=== PATIENT | male | born 1980 | race Hispanic/Latino ===

== ENCOUNTER 2018-08-05 14:21 | Emergency (ER) | payer OTHER ==
[2018-08-05 14:23] VITALS: BMI 28.7
[2018-08-05 14:49] VITALS: RESP 18
--- NOTE | 2018-08-05 15:07 | ED PDOC ---
Arrival/HPI - General Chief Complaint: Seizure Time Seen by Provider: 08/05/18 14:55 Historian: Patient, Family - History of Present Illness Narrative History of Present Illness (Text): 08/05/18 15:05 38 year old male, whose past medical history includes HTN, DM type II, seizure with shunt in place, and cerebral palsy, , presents to the emergency department accompanied by family for evaluation of seizure episode s/p slip and fall while taking a bath. As per family, patient has not had a seizure in a few years and reports patient is complaint with his medication. Patient is complaining of a headache, but denies any fever, chills, chest pain, shortness of breath, nausea, vomiting, diarrhea, urinary symptoms, back pain, neck pain, dizziness, or any other complaints. PMD: Dr. Sultana Time/Duration: Prior to Arrival Symptom Onset: Sudden Symptom Course: Unchanged Activities at Onset: Light Context: Slipped Past Medical History - Provider Review Nursing Documentation Reviewed: Yes - Cardiac Hx Hypertension: Yes - Neurological Hx Seizures: Yes Other/Comment: Shunt, Cerebral Palsy - Endocrine/Metabolic Hx Diabetes Mellitus Type 2: Yes - Psychiatric Hx Substance Use: No - Surgical History Other/Comment: ventricular shunt - Anesthesia Hx Anesthesia: Yes Hx Anesthesia Reactions: No Hx Malignant Hyperthermia: No Family/Social History - Physician Review Nursing Documentation Reviewed: Yes Family/Social History: No Known Family HX Smoking Status: Never Smoked Hx Alcohol Use: No Hx Substance Use: No Allergies/Home Meds Allergies/Adverse Reactions: Allergies No Known Allergies Allergy (Verified 08/05/18 14:50) Home Medications: Home Meds Medication Instructions Recorded Confirmed ALPRAZolam [Xanax] 1 mg PO TID PRN 08/05/18 08/05/18 Divalproex [Depakote] 500 mg PO BID 08/05/18 08/05/18 Enalapril Maleate [Vasotec] 5 mg PO DAILY 08/05/18 08/05/18 Labetalol [Trandate] 300 mg PO DAILY 08/05/18 08/05/18 OXcarbazepine [Trileptal] 1.5 tab PO DAILY 08/05/18 08/05/18 traMADol [Ultram] 50 mg PO TID PRN 08/05/18 08/05/18 Review of Systems - Physician Review All systems were reviewed & negative as marked: Yes - Review of Systems Constitutional: absent: Fevers, Other (chills) Respiratory: absent: SOB Cardiovascular: Syncope. absent: Chest Pain Gastrointestinal: absent: Diarrhea, Nausea, Vomiting Genitourinary Male: absent: Dysuria, Frequency, Hematuria Musculoskeletal: absent: Back Pain, Neck Pain Neurological: Headache. absent: Dizziness Physical Exam - Physical Exam Narrative Physical Exam (Text): Gen: VS reviewed, alert, well developed, well nourished, nontoxic, mild distress. Head: Enlarged cranium. palpable [employer] shunt bilaterally ENT: normal pharynx. Mouth: Dry mucus membranes. Eye: EOMI, PERRL. Neck: no JVD, supple, no adenopathy. CV: regular rate, regular rhythm, no rubs, no murmur, no gallops, S1, S2, pulses equal and strong. Pulm: no distress, clear to auscultation, no wheeze, no rhonchi, breath sounds equal, no rales. Abd: soft, nontender, no guarding, no rebound, no rigidity, normal bowel sounds. Ext: no edema. Skin: good color, no rash, no cyanosis. Psych: responds appropriately to questions, normal affect. Neuro: oriented x 3, CN2-12 intact grossly, motor intact, sensation intact. Vital Signs Reviewed: Yes Vital Signs Temp Pulse Resp BP Pulse Ox 08/05/18 14:21 98.4 F 68 18 127/79 98 Temperature: Afebrile Blood Pressure: Normal Pulse: Regular Respiratory Rate: Normal Medical Decision Making ED Course and Treatment: 08/05/18 15:05 Impression: 38 year old male presents for evaluation of seizure episode s/p slip and fall in the bath tube. Plan: -- CT Head w/o contrast -- EKG -- Labs -- Chest X-ray -- Pelvis One view x-ray -- Shuntogram x-ray -- Reassess and disposition Prior Visits: Notes and results from previous visits were reviewed. Progress Notes: 08/05/18 18:[address] rangel, patient's neurologist. recommends loading dose of depakote and patient can be discharged home to follow up in the office. - Lab Interpretations I have reviewed the lab results: Yes - RAD Interpretation Narrative RAD Interpretations (Text): PROCEDURE: CT HEAD WITHOUT CONTRAST. Dictator : Kike Manzano MD Report Date : 08/05/2018 16:20:14 IMPRESSION: No change in chronic severe hydrocephalus. Left-sided shunt catheter remains in place. Trucking Manager: Radiologist - EKG Interpretation EKG Interpretation (Text): EKG shows NSR @ 63 bpm, nml qrs, nml axis, no acute sttw abn, early repolarization. Interpreted by ED Physician: Yes Type: 12 lead EKG - Scribe Statement The provider has reviewed the documentation as recorded by the Scribe Peyman Cortez Provider Scribe Attestation: All medical record entries made by the Scribe were at my direction and personally dictated by me. I have reviewed the chart and agree that the record accurately reflects my personal performance of the history, physical exam, medical decision making, and the department course for this patient. I have also personally directed, reviewed, and agree with the discharge instructions and disposition. Disposition/Present on Arrival - Present on Arrival Any Indicators Present on Arrival: No History of DVT/PE: No History of Uncontrolled Diabetes: No Urinary Catheter: No History of Decub. Ulcer: No History Surgical Site Infection Following: None - Disposition Have Diagnosis and Disposition been Completed?: Yes Diagnosis: Breakthrough seizure, Head injury Disposition: HOME/ ROUTINE Disposition Time: 18:50 Patient Plan: Discharge Condition: STABLE Discharge Instructions (ExitCare): Seizures, Adult (DC), Closed Head Injury (DC) Additional Instructions: return for any problems or concerns. call the neurologist on tuesday to make a follow up appointment. Referrals: FAMILY PROVIDER,NO [Non-Staff] - Follow up with primary Rosalio Rangel MD [Staff Provider] - Follow up with primary Forms: [employer] (Romanian), WORK NOTE
[2018-08-05 15:35] LABS: EOS % 0.4 % (1.5-5.0); HEMOGLOBIN 12.2 g/dL (14.0-18.0); LYMPH # 1.3 (1.2-3.4); LYMPH % 24.9 % (22.0-35.0); MEAN CELL VOLUME 94.9 fl (80.0-105.0); MEAN CORPUSCULAR HEMOGLOBIN 31.3 pg (25.0-35.0); MEAN PLATELET VOLUME 9.8 fl (7.0-11.0); MONO # 0.6 (0.1-0.6); MONO % 10.9 % (1.0-6.0); RBC 3.9 10^6/uL (3.5-6.1); RED CELL DISTRIBUTION WIDTH 12.4 % (11.5-14.5); WHITE BLOOD COUNT 5.3 10^3/uL (4.5-11.0)
[2018-08-05 15:45] LABS: ALB/GLOB RATIO 1.4 (1.1-1.8); ALBUMIN 3.5 g/dL (3.0-4.8); ALT/SGPT 12 U/L (7-56); AST/SGOT 22 U/L (17-59); BLOOD UREA NITROGEN 26 mg/dL (7-21); CALCIUM 8.9 mg/dL (8.4-10.5); GFR NON-AFRICAN AMERICAN > 60
--- NOTE | 2018-08-05 16:23 | CT ---
Date of service: 08/05/2018 PROCEDURE: CT HEAD WITHOUT CONTRAST. HISTORY: trauma, hx vp purchasing shunt COMPARISON: 01/15/2015 TECHNIQUE: Axial computed tomography images were obtained through the head/brain without intravenous contrast. Radiation dose: Total exam DLP = 1080.35 mGy-cm. This CT exam was performed using one or more of the following dose reduction techniques: Automated exposure control, adjustment of the mA and/or kV according to patient size, and/or use of iterative reconstruction technique. FINDINGS: HEMORRHAGE: No intracranial hemorrhage. BRAIN: No mass effect or edema. No atrophy or chronic microvascular ischemic changes. VENTRICLES: There is severe chronic hydrocephalus which is unchanged.. There is a ventricular shunt catheter in the left lateral ventricle. The occipital and temporal lobe show the most enlargement. The frontal horns are only minimally enlarged. The 3rd and 4th ventricles are normal in size.. CALVARIUM: Unremarkable. PARANASAL SINUSES: Unremarkable as visualized. No significant inflammatory changes. MASTOID AIR CELLS: Unremarkable as visualized. No inflammatory changes. OTHER FINDINGS: None. IMPRESSION: No change in chronic severe hydrocephalus. Left-sided shunt catheter remains in place.
--- NOTE | 2018-08-05 18:28 | RAD ---
Date of service: 08/05/2018 PROCEDURE: Shunt catheter evaluation, shuntogram HISTORY: seizure, hydrocephalus COMPARISON: No prior shunt catheter studies available for direct comparison. There is a CT scan of the head of the same day. TECHNIQUE: Four views of the head, neck, chest, and abdomen were performed for shunt evaluation utilizing normal department protocol. FINDINGS: There is evidence of a right shunt catheter overlying the right lower neck and chest and extending into the abdomen. This appears to be removed superiorly from the neck. There is a left shunt catheter appreciated in seen on the CT scan performed on the same day. This left shunt catheter appears to be grossly intact. This extends posteriorly on the lateral view. Shunt catheter appears to extend across the anterior chest and enters the upper central abdomen anteriorly and its tip is noted in the right upper quadrant with some mild coiling. Evaluation of the lungs and abdomen are otherwise unremarkable. Parascribe bones. IMPRESSION: Grossly intact left shunt catheter. Old discontinued right shunt catheter. Correlation with prior studies would be suggested. Results were conveyed to the emergency room physician at the time of this dictation.
[2018-08-05] MEDS ORDERED: Valproate 500 MG in Sodium Chloride 0.9% 100 ML IVPB ONE (18:40)
[2018-08-05 19:21] VITALS: BP 118/65; PULSE 67; TEMP 98.5; O2SAT 98
--- NOTE | 2018-08-06 09:15 | CARD ---
APPROVED REPORT Date of service: 08/05/2018 EKG Measurement Heart [id number] <Conclusion> Normal sinus rhythm Early repolarization Normal ECG
--- NOTE | 2018-08-06 11:35 | RAD ---
Date of service: 08/05/2018 PROCEDURE: Radiographs of the pelvis. HISTORY: fall, injury COMPARISON: None. TECHNIQUE: 1 view obtained. FINDINGS: BONES: Pelvic Bones: Unremarkable. Hips: Grossly unremarkable. JOINTS: Sacroiliac Joints: Unremarkable. Pubic Symphysis: Unremarkable. OTHER FINDINGS: None. IMPRESSION: Unremarkable radiographs of the pelvis.
== END 2018-08-05 19:20 | disposition home or self-care (01) ==
LOC: ED 14:21
DX: S09.90XA Unspecified injury of head, initial encounter (principal); W01.0XXA Fall on same level from slipping, tripping and stumbling without subsequent striking against object, initial encounter; I10 Essential (primary) hypertension; E11.9 Type 2 diabetes mellitus without complications; G80.9 Cerebral palsy, unspecified; G40.919 Epilepsy, unspecified, intractable, without status epilepticus